=== PATIENT | female | born 1930 | race Caucasian/White ===

== ENCOUNTER 2018-02-05 13:25 | Emergency (ER) | payer MEDICARE ==
[2018-02-05 14:24] VITALS: BP 121/67
--- NOTE | 2018-02-05 15:29 | UC ---
Hip/Pelvis Pain - HPI Summary HPI Summary: Fell yesterday outside onto her left side. Having right hip/ groin pain today. Worse with standing. - History Of Current Complaint Chief Complaint: UCLowerExtremity Stated Complaint: S/P FALL RIGHT LEG Time Seen by Provider: 02/05/18 15:19 Hx Obtained From: Patient Hx Last Menstrual Period: n/a Onset/Duration: Sudden Onset, Lasting Days - 1, Still Present Timing: Constant Severity Initially: Moderate Severity Currently: Mild Pain Intensity: 0 Location: Discrete At: - right hip and groin Character Of Pain: Dull Aggravating Factor(s): Weight Bearing Alleviating Factor(s): Rest Associated Signs And Symptoms: Positive: Negative - Allergies/Home Medications Allergies/Adverse Reactions: Allergies Allergy/AdvReac Type Severity Reaction Status Date / Time neomycin Allergy Unknown Verified 02/05/18 14:17 Reaction Details PMH/Surg Hx/FS Hx/Imm Hx Cardiovascular History: Hypertension - Surgical History Surgical History: Yes Surgery Procedure, Year, and Place: bilat knee replacement. bilat shoulder surg. appendectomy. tonsillectomy - Family History Known Family History: Positive: Cardiac Disease, Hypertension, Diabetes - Social History Occupation: Retired Lives: Alone Alcohol Use: None Substance Use Type: None Smoking Status (MU): Never Smoked Tobacco - Immunization History Most Recent Influenza Vaccination: 03/2013 Review of Systems Musculoskeletal: Arthralgia - right hip Is Patient Immunocompromised?: No All Other Systems Reviewed And Are Negative: Yes Physical Exam Triage Information Reviewed: Yes Appearance: Well-Appearing, Well-Nourished, Pain Distress - mild Vital Signs: Initial Vital Signs Temp 98.1 F 02/05/18 14:19 Pulse 90 02/05/18 14:19 Resp 20 02/05/18 14:19 BP 121/67 02/05/18 14:19 Pulse Ox 99 02/05/18 14:19 Vital Signs Reviewed: Yes Eyes: Positive: Conjunctiva Clear Neck exam: Normal Respiratory: Positive: Lungs clear Cardiovascular: Positive: RRR, Murmur:Sys:Grade _?_/ - 3/6 Musculoskeletal: Positive: Strength Limited @ - right hip with pain., ROM Limited @ - right hip. In wheelchair., Other: - Tender over the greater trochanter. Neurological Exam: Normal Psychological Exam: Normal Skin Exam: Normal Diagnostics - Radiology No standard instances Xray Interpretation: No Acute Changes Radiology Interpretation Completed By: Radiologist Hip Injury Course/Dx - Differential Dx/Diagnosis Differential Diagnosis/HQI/PQRI: Dislocation, Fracture, Sprain, Strain Provider Diagnoses: Right hip strain. Discharge - Sign-Out/Discharge Documenting (check all that apply): Patient Departure All imaging exams completed and their final reports reviewed: Yes - Discharge Plan Condition: Stable Disposition: HOME Patient Education Materials: Muscle Strain (ED), Hip Sprain (ED) Referrals: Ina Wong MD [Primary Care Provider] - 2 Days (If not improving.) - Billing Disposition and Condition Condition: STABLE Disposition: Home
--- NOTE | 2018-02-05 15:44 | RAD ---
HISTORY: fell yesterday on the left side. Right hip pain COMPARISONS: None VIEWS: 3 , Frontal view of the pelvis with frontal and frog-leg views of the right hip FINDINGS: BONE DENSITY: There is diffuse osteopenia. BONES: There is no displaced fracture. JOINTS: There is mild osteoarthritis of the hips and SI joints bilaterally. ALIGNMENT: There is no dislocation. SOFT TISSUES: Unremarkable. OTHER FINDINGS: Degenerative changes are noted of the spine. IMPRESSION: 1. OSTEOPENIA. 2. OSTEOARTHRITIS. 3. NO RADIOGRAPHIC EVIDENCE FOR HIP FRACTURE. X-RAYS MAY BE NEGATIVE WITH NONDISPLACED HIP FRACTURE, IF THERE IS PERSISTENT CLINICAL CONCERN, RECOMMEND CONSIDERATION OF MRI. IN THE SETTING OF CONTRAINDICATION TO MRI OR LIMITATION IN EMERGENT ACCESS TO MRI, CT WOULD BE SUGGESTED.
== END 2018-02-05 16:12 | disposition home or self-care (01) ==
LOC: UCCORT 13:25
DX: S73.101A Unspecified sprain of right hip, initial encounter (principal); W19.XXXA Unspecified fall, initial encounter; Y93.9 Activity, unspecified; Y92.9 Unspecified place or not applicable; Z88.1 Allergy status to other antibiotic agents
CPT/HCPCS: 99211; G0463

== ENCOUNTER 2018-02-27 13:46 | Emergency (ER) | payer MEDICARE ==
[2018-02-27] MEDS ORDERED: NS 0.9% 500 ML* 500 ML IV ONE (14:38)
[2018-02-27 14:51] LABS: ABS Basophils 0 10^3/ul (0-0.2); ABS Eosinophils 0.1 10^3/ul (0-0.6); ABS Lymphocytes 1.1 10^3/ul (1.0-4.8); ABS Monocytes 0.6 10^3/ul (0-0.8); ABS Neutrophils 4.1 10^3/ul (1.5-7.7); ABS Nucleated RBC 0 10^3/ul; Eosinophil % 2.1 % (0-6); Hematocrit 33 % (35-47); Hemoglobin 11.5 g/dl (12.0-16.0); Lymphocyte % 18.9 % (25-47); Mean Corpuscular HGB Conc 35 g/dl (31-36); Mean Corpuscular Hemoglobin 34 pg (27-31); Mean Corpuscular Volume 98 fL (80-97); Mean Platelet Volume 5.8 um3 (7.4-10.4); Nucleated Red Blood Cells % 0.1; Platelet Count 352 10^3/ul (150-450); Red Blood Count 3.35 10^6/ul (4.00-5.40); Red Cell Distribution Width 13 % (10.5-15)
[2018-02-27 15:08] LABS: EGFR Non-African American 104.1 (>60)
[2018-02-27 16:55] LABS: Urine Appearance Cloudy; Urine Blood Negative (Negative); Urine Color Yellow; Urine Ketones Negative (Negative); Urine Protein Negative (Negative); Urine Red Blood Cell Absent (Absent); Urine Specific Gravity 1.005 (1.010-1.030); Urine Urobilinogen Negative (Negative); Urine White Blood Cell 3+(>20/hpf) (Absent)
[2018-02-27] MEDS ORDERED: cefTRIAXone(*) 1 GM in NS 0.9% 50 ML* 50 ML IVPB ONE (17:13)
--- NOTE | 2018-02-27 17:27 | ED ---
GI/ HPI - HPI Summary HPI Summary: Patient is a 87 y/o F w/ c/o constipation for the past week. She denies vomiting , reports occasional nausea. Patient reports recent decreased appetite. Fever denied, some chills reported. PMHx of MS is noted, Hx of [place], stroke is denied. She reports slight JENKINS, denies blurred/double vision, chest pain, SOB, bruises, edema, depression, anxiety, sore throat, ear pain, neck pain and putting anything up her rectum. On triage, associated severity is rated 2/10, nothing is noted to aggravate/alleviate Sx. Home medications and allergies are reviewed. Patient lives alone. - History of Current Complaint Chief Complaint: EDAbdPain Stated Complaint: INABILITY TO URINATE Hx Obtained From: Patient Hx Last Menstrual Period: n/a Onset/Duration: Started Weeks Ago - onset a week ago, Still Present Timing: Constant, Lasting Weeks - one week Current Severity: Mild - 2/10 Pain Intensity: 2 Associated Signs and Symptoms: Positive: Nausea, Constipation, Change in Appetite - decreased, Chills, Other: - POSITIVE: slight JENKINS NEGATIVE: blurred/ double vision, SOB, bruises, edema, depression, anxiety, sore throat, ear pain, neck pain, putting anything up her rectum. Negative: Vomiting, Fever, Chest Pain Aggravating Factor(s): Nothing Alleviating Factor(s): Nothing - Allergy/Home Medications Allergies/Adverse Reactions: Allergies Allergy/AdvReac Type Severity Reaction Status Date / Time neomycin Allergy Unknown Verified 02/27/18 14:40 Reaction Details Home Medications: Home Medications C,E,Zinc,Copper 11/Uauxn8v/Lut [Ocuvite Adult 50 Plus Softgel] 1 cap PO BID [History Confirmed 02/27/18] Calcium Carb/Vit D3/Minerals [Calcium 600+D Plus [place]] 1 tab PO DAILY [History Confirmed 02/27/18] Hydrochlorothiazide TAB* [Hydrodiuril TAB*] 25 mg PO DAILY 02/27/18 [History Confirmed 02/27/18] Hydroxychloroquine TAB* [Plaquenil TAB*] 200 mg PO DAILY 02/27/18 [History Confirmed 02/27/18] Ibuprofen TAB* [Advil TAB*] 200 mg PO Q6H PRN 02/27/18 [History Confirmed ] Multivitamins/Minerals TAB* [Theragran/minerals TAB*] 1 tab PO DAILY 02/27/18 [ History Confirmed 02/27/18] Oxybutynin TAB* [Ditropan TAB*] 5 mg PO BID 02/27/18 [History Confirmed 02/27/18 ] PMH/Surg Hx/FS Hx/Imm Hx Cardiovascular History: Reports: Hx Hypertension Denies: Hx Myocardial Infarction Neurological History: Reports: Other Neuro Impairments/Disorders - Hx of MS Denies: Hx CVA - Surgical History Surgery Procedure, Year, and Place: bilat knee replacement. bilat shoulder surg. appendectomy. tonsillectomy - Immunization History Immunizations Up to Date: Yes Infectious Disease History: No Infectious Disease History: Denies: Traveled Outside the [place] in Last 30 Days - Family History Known Family History: Positive: Cardiac Disease, Hypertension, Diabetes - Social History Alcohol Use: None Substance Use Type: Reports: None Smoking Status (MU): Never Smoked Tobacco Review of Systems Positive: Chills. Negative: Fever Negative: Blurred Vision - negative - double vision Negative: Sore Throat, Ear Ache Negative: Chest Pain Negative: Shortness Of Breath Positive: Nausea Positive: other - constipation, denies putting anything up her rectum Positive: Other - NEGATIVE: neck pain . Negative: Edema Negative: Bruising Positive: Headache Negative: Anxious, Depressed All Other Systems Reviewed And Are Negative: No Physical Exam - Summary Physical Exam Summary: Appearance: Alert, conversive, nontoxic appearing Skin: Warm, dry, no mottling, no rashes, no contusions HEENT: EOMI, PERRL, slightly dry mucous membranes Neck: No masses on the neck, supple Respiratory: Clear to auscultation, breath sounds present, no rales, no rhonchi , no wheezes Cardiovascular: RRR, pulses are symmetrical in both lower and upper extremities Abdomen: Soft, non-tender Bowel Sounds: Present Rectal exam: tiny tear at 4 o'clock position in rectum, no stool noted in rectal vault Musculoskeletal: No CVA tenderness, no obvious deformity, moving all extremities in a grossly normal manner Neurological: A&Ox3, CN II-XII Intact, moving all extremities symmetrically Psychiatric: Normal affect and mood Triage Information Reviewed: Yes Vital Signs On Initial Exam: Initial Vitals Temp Pulse Resp BP Pulse Ox 98.5 F 95 16 122/47 97 02/27/18 13:54 02/27/18 13:54 02/27/18 13:54 02/27/18 13:54 02/27/18 13:54 Vital Signs Reviewed: Yes Diagnostics - Vital Signs Vital Signs Temp Pulse Resp BP Pulse Ox 02/27/18 16:32 89 165/101 94 02/27/18 16:02 76 148/91 90 02/27/18 16:00 84 91 02/27/18 15:32 78 156/87 95 02/27/18 15:02 82 147/81 80 02/27/18 15:00 75 93 02/27/18 14:33 79 148/75 97 02/27/18 14:32 82 94 02/27/18 13:54 98.5 F 95 16 122/47 97 - Laboratory Lab Results: Lab Results 02/27/18 02/27/18 02/27/18 Range/Units 14:40 14:40 14:40 WBC 6.0 (3.5-10.8) 10^3/ul RBC 3.35 L (4.00-5.40) 10^6/ul Hgb 11.5 L (12.0-16.0) g/dl Hct 33 L (35-47) % MCV 98 H (80-97) fL MCH 34 H (27-31) pg MCHC 35 (31-36) g/dl RDW 13 (10.5-15) % Plt Count 352 (150-450) 10^3/ul MPV 5.8 L (7.4-10.4) um3 Neut % (Auto) 69.2 (38-83) % Lymph % (Auto) 18.9 L (25-47) % Waldo % (Auto) 9.4 H (0-7) % Eos % (Auto) 2.1 (0-6) % Baso % (Auto) 0.4 (0-2) % Absolute Neuts (auto) 4.1 (1.5-7.7) 10^3/ul Absolute Lymphs (auto) 1.1 (1.0-4.8) 10^3/ul Absolute Monos (auto) 0.6 (0-0.8) 10^3/ul Absolute Eos (auto) 0.1 (0-0.6) 10^3/ul Absolute Basos (auto) 0 (0-0.2) 10^3/ul Absolute Nucleated RBC 0 10^3/ul Nucleated RBC % 0.1 Sodium 132 L (135-145) mmol/L Potassium 3.6 (3.5-5.0) mmol/L Chloride 96 L (101-111) mmol/L Carbon Dioxide 30 (22-32) mmol/L Anion Gap 6 (2-11) mmol/L BUN 15 (6-24) mg/dL Creatinine 0.55 (0.51-0.95) mg/dL Est GFR ( Amer) 125.9 (>60) Est GFR (Non-Af Amer) 104.1 (>60) BUN/Creatinine Ratio 27.3 H (8-20) Glucose 88 (70-100) mg/dL Lactic Acid 0.7 (0.5-2.0) mmol/L Calcium 9.1 (8.6-10.3) mg/dL Magnesium 1.9 (1.9-2.7) mg/dL Total Bilirubin 0.40 (0.2-1.0) mg/dL AST 29 (13-39) U/L ALT 26 (7-52) U/L Alkaline Phosphatase 145 H (34-104) U/L Total Protein 6.4 (6.4-8.9) g/dL Albumin 3.8 (3.2-5.2) g/dL Globulin 2.6 (2-4) g/dL Albumin/Globulin Ratio 1.5 (1-3) Lipase 15 (11.0-82.0) U/L Urine Color Urine Appearance Urine pH (5-9) Ur Specific [place] (1.010-1.030) Urine Protein (Negative) Urine Ketones (Negative) Urine Blood (Negative) Urine Nitrate (Negative) Urine Bilirubin (Negative) Urine Urobilinogen (Negative) Ur Leukocyte Esterase (Negative) Urine WBC (Auto) (Absent) Urine RBC (Auto) (Absent) Urine Bacteria (Absent) Urine Glucose (Negative) Urine Ascorbic Acid (Negative) 02/27/18 Range/Units 16:33 WBC (3.5-10.8) 10^3/ul RBC (4.00-5.40) 10^6/ul Hgb (12.0-16.0) g/dl Hct (35-47) % MCV (80-97) fL MCH (27-31) pg MCHC (31-36) g/dl RDW (10.5-15) % Plt Count (150-450) 10^3/ul MPV (7.4-10.4) um3 Neut % (Auto) (38-83) % Lymph % (Auto) (25-47) % [place] % (Auto) (0-7) % Eos % (Auto) (0-6) % Baso % (Auto) (0-2) % Absolute Neuts (auto) (1.5-7.7) 10^3/ul Absolute Lymphs (auto) (1.0-4.8) 10^3/ul Absolute Monos (auto) (0-0.8) 10^3/ul Absolute Eos (auto) (0-0.6) 10^3/ul Absolute Basos (auto) (0-0.2) 10^3/ul Absolute Nucleated RBC 10^3/ul Nucleated RBC % Sodium (135-145) mmol/L Potassium (3.5-5.0) mmol/L Chloride (101-111) mmol/L Carbon Dioxide (22-32) mmol/L Anion Gap (2-11) mmol/L BUN (6-24) mg/dL Creatinine (0.51-0.95) mg/dL Est GFR ( Amer) (>60) Est GFR (Non-Af Amer) (>60) BUN/Creatinine Ratio (8-20) Glucose (70-100) mg/dL Lactic Acid (0.5-2.0) mmol/L Calcium (8.6-10.3) mg/dL Magnesium (1.9-2.7) mg/dL Total Bilirubin (0.2-1.0) mg/dL AST (13-39) U/L ALT (7-52) U/L Alkaline Phosphatase (34-104) U/L Total Protein (6.4-8.9) g/dL Albumin (3.2-5.2) g/dL Globulin (2-4) g/dL Albumin/Globulin Ratio (1-3) Lipase (11.0-82.0) U/L Urine Color Yellow Urine Appearance Cloudy Urine pH 7.0 (5-9) Ur Specific [place] 1.005 L (1.010-1.030) Urine Protein Negative (Negative) Urine Ketones Negative (Negative) Urine Blood Negative (Negative) Urine Nitrate Positive A (Negative) Urine Bilirubin Negative (Negative) Urine Urobilinogen Negative (Negative) Ur Leukocyte Esterase 3+ A (Negative) Urine WBC (Auto) 3+(>20/hpf) A (Absent) Urine RBC (Auto) Absent (Absent) Urine Bacteria 1+ A (Absent) Urine Glucose Negative (Negative) Urine Ascorbic Acid * A (Negative) Result Diagrams: 02/27/18 14:40 02/27/18 14:40 Lab Statement: Any lab studies that have been ordered have been reviewed, and results considered in the medical decision making process. - Radiology abdomen x-ray Xray Interpretation: Positive (See Comments) Radiology Interpretation Completed By: Radiologist - Nonspecific bowel gas pattern. Large amount of stool throughout the colon. This report was reviewed by ed physician. Re-Evaluation - Re-Evaluation First Eval Re-Evaluation Time: 18:15 Comment: Discussed results of abdomen x-ray and UA as well as plan of treatment as an outpatient. Patient is agreeable with plan. GIGU Course/Dx - Course Course Of Treatment: Patient is a 87 y/o F w/ c/o constipation for the past week. She denies vomiting, reports occasional nausea. Patient reports recent decreased appetite. Fever denied, some chills reported. PMHx of MS is noted, Hx of [place], stroke is denied. She reports slight JENKINS, denies blurred/double vision, chest pain, SOB, bruises, edema, depression, anxiety, sore throat, ear pain, neck pain and putting anything up her rectum. On physical exam, patient is noted to have slightly dry mucous membranes, rectal exam revealed tiny tear at the 4 o'clock position of the rectum, no stool noted in rectal vault. During ED course, patient received fluids, IV ceftriaxone. Labs showed WBC 6.0, glucose 88 , lactic acid 0.7, sodium 132, chloride 96, RBC 3.35, alk phos 145, lipase 15. UA showed positive nitrate, 3+ leukocyte esterase, 3+ WBC, bacteria present, ascorbic acid present. Abdomen X-ray shows nonspecific bowel gas pattern. Large amount of stool throughout the colon. Discussed results of abdomen x-ray and UA as well as plan of treatment as an outpatient. Patient is agreeable with plan. Dx of UTI and constipation. - Diagnoses Provider Diagnoses: Constipation, UTI (urinary tract infection) Discharge - Sign-Out/Discharge Documenting (check all that apply): Patient Departure - discharge - Discharge Plan Condition: Stable Disposition: HOME Prescriptions: Cephalexin CAP* [Keflex CAP*] 500 mg PO TID #21 cap MDD 3 Patient Education Materials: Constipation (ED), Urinary Tract Infection in Women (DC) Referrals: Ina Wong MD [Primary Care Provider] - Additional Instructions: Take the keflex as instructed. return if worse or any new symptoms. Drink plenty of fluids. eat plenty of fruits and vegetables. follow up with your doctor this week. take the magnesium citrate clear liquid when you get home. it may cause loose stools. stay at home for several hours after you take it so you can be near a bathroom. - Billing Disposition and Condition Condition: STABLE Disposition: Home - Attestation Statements Document Initiated by [place]: Yes Documenting Scribe: Salomón Pierre Provider For Whom Kayce is Documenting (Include Credential): Priyanka Mulligan MD Scribe Attestation: Salomón Anand , scribed for Priyanka Mulligan MD on 02/27/18 at 1855. Scribe Documentation Reviewed: Yes Provider Attestation: The documentation as recorded by the Salomón mccrary accurately reflects the service I personally performed and the decisions made by me, Priyanka Mulligan MD
--- NOTE | 2018-02-27 17:28 | RAD ---
HISTORY: constipation, decreased po intake COMPARISONS: None VIEWS: Frontal views of the abdomen. FINDINGS: BOWEL: There is a nonspecific bowel gas pattern, with nondilated small bowel gas noted. There is a large amount of stool within the colon. CALCULI: Calcified uterine fibroids are noted. BONES AND SOFT TISSUES: There is a scoliotic curvature of the spine. Degenerative changes noted of the spine and hips. OTHER FINDINGS: The lung bases are clear. There is no subphrenic gas. IMPRESSION: NONSPECIFIC BOWEL GAS PATTERN. LARGE AMOUNT OF STOOL THROUGHOUT THE COLON.
[2018-02-27] MEDS ORDERED: Magnesium CITRATE* 300 ML BTL PO ONE (18:26)
[2018-02-27 18:52] VITALS: BP 153/74
--- NOTE | 2018-03-01 15:47 | ED ---
Progress - Progress Note Progress Note: Patient's preliminary urine culture reveals greater than 100,000 Escherichia coli. Patient was started on Keflex. Final results pending. Re-Evaluation - Re-Evaluation First Eval Re-Evaluation Time: 18:15 Comment: Discussed results of abdomen x-ray and UA as well as plan of treatment as an outpatient. Patient is agreeable with plan. Course/Dx - Course Course Of Treatment: Patient is a 87 y/o F w/ c/o constipation for the past week. She denies vomiting, reports occasional nausea. Patient reports recent decreased appetite. Fever denied, some chills reported. PMHx of MS is noted, Hx of [place], stroke is denied. She reports slight JENKINS, denies blurred/double vision, chest pain, SOB, bruises, edema, depression, anxiety, sore throat, ear pain, neck pain and putting anything up her rectum. On physical exam, patient is noted to have slightly dry mucous membranes, rectal exam revealed tiny tear at the 4 o'clock position of the rectum, no stool noted in rectal vault. During ED course, patient received fluids, IV ceftriaxone. Labs showed WBC 6.0, glucose 88 , lactic acid 0.7, sodium 132, chloride 96, RBC 3.35, alk phos 145, lipase 15. UA showed positive nitrate, 3+ leukocyte esterase, 3+ WBC, bacteria present, ascorbic acid present. Abdomen X-ray shows nonspecific bowel gas pattern. Large amount of stool throughout the colon. Discussed results of abdomen x-ray and UA as well as plan of treatment as an outpatient. Patient is agreeable with plan. Dx of UTI and constipation. - Diagnoses Provider Diagnoses: Constipation, UTI (urinary tract infection) Discharge - Sign-Out/Discharge Documenting (check all that apply): Post-Discharge Follow Up - Discharge Plan Condition: Stable Disposition: HOME Prescriptions: Cephalexin CAP* [Keflex CAP*] 500 mg PO TID #21 cap MDD 3 Patient Education Materials: Constipation (ED), Urinary Tract Infection in Women (DC) Referrals: Ina Wong MD [Primary Care Provider] - Additional Instructions: Take the keflex as instructed. return if worse or any new symptoms. Drink plenty of fluids. eat plenty of fruits and vegetables. follow up with your doctor this week. take the magnesium citrate clear liquid when you get home. it may cause loose stools. stay at home for several hours after you take it so you can be near a bathroom. - Billing Disposition and Condition Condition: STABLE Disposition: Home
--- NOTE | 2018-03-02 06:16 | PN ---
Progress Note - Progress Note Date of Service: 02/27/18 Note: Pt. seen in ED 02/27 and started on Keflex for UTI. Final urine culture today is susceptible to keflex, no change in treatment needed at this time.
== END 2018-02-27 18:50 | disposition home or self-care (01) ==
LOC: ED 13:46
DX: N39.0 Urinary tract infection, site not specified (principal); K59.00 Constipation, unspecified; I25.2 Old myocardial infarction; R51 Headache
CPT/HCPCS: 36415; 74018; 80053; 81003; 81015; 83605; 83690; 83735; 85025; 87077; 87086; 87186; 96365; 99283; A9270-GY; J0696

== ENCOUNTER 2018-03-05 15:11 | Emergency (ER) | payer MEDICARE ==
[2018-03-05 16:25] LABS: ABS Basophils 0.1 10^3/ul (0-0.2); ABS Eosinophils 0.1 10^3/ul (0-0.6); ABS Lymphocytes 0.9 10^3/ul (1.0-4.8); ABS Monocytes 0.7 10^3/ul (0-0.8); ABS Neutrophils 5.5 10^3/ul (1.5-7.7); ABS Nucleated RBC 0 10^3/ul; Eosinophil % 0.8 % (0-6); Hematocrit 32 % (35-47); Hemoglobin 11.3 g/dl (12.0-16.0); Lymphocyte % 12.6 % (25-47); Mean Corpuscular HGB Conc 35 g/dl (31-36); Mean Corpuscular Hemoglobin 34 pg (27-31); Mean Corpuscular Volume 97 fL (80-97); Mean Platelet Volume 6.1 um3 (7.4-10.4); Nucleated Red Blood Cells % 0; Platelet Count 382 10^3/ul (150-450); Red Blood Count 3.33 10^6/ul (4.00-5.40); Red Cell Distribution Width 13 % (10.5-15); White Blood Count 7.2 10^3/ul (3.5-10.8)
[2018-03-05 16:44] LABS: EGFR Non-African American 92.4 (>60)
--- NOTE | 2018-03-05 17:31 | RAD ---
INDICATION: Right-sided rib pain. COMPARISON: Comparison is made with a prior chest x-ray study from January 17, 2015. TECHNIQUE: 4 views of the right ribs and and an AP supine film of the chest were obtained. FINDINGS: The bones appear osteopenic. No fracture is seen. The heart appears mildly enlarged and unchanged. The lungs are hyperinflated and clear. No pleural effusion is seen. IMPRESSION: NO EVIDENCE FOR FRACTURE.
--- NOTE | 2018-03-05 17:32 | ED ---
Back Pain - HPI Summary HPI Summary: Patient complains of right upper side pain 2 weeks. Pain is sharp, worse with movement, better with rest in position. Patient states she had a fall a couple days prior to onset of pain, was evaluated for fall at [place]. [place] [facility] [place], is currently having bowel movements. Denies fever, cough, sore throat, CP, SOB, N/V/D, change in urine. Abdominal surgical history is appendectomy. - History of Current Complaint Chief Complaint: EDAbdPain Stated Complaint: BACK/ABD PAIN Time Seen by Provider: 03/05/18 16:08 Hx Obtained From: Patient, Family/[employer] Hx Last Menstrual Period: n/a Onset/Duration: Gradual Onset, Lasting Weeks Onset/Duration: Started Weeks Ago Timing: Intermittent Back Pain Location: Is Discrete @ Severity Initially: Moderate Severity Currently: Moderate Pain Intensity: 5 Pain Scale Used: 0-10 Numeric Character: Sharp Aggravating Symptom(s): Movement Alleviating Symptom(s): Rest, Position Associated Signs And Symptoms: Positive: Negative - Allergies/Home Medications Allergies/Adverse Reactions: Allergies Allergy/AdvReac Type Severity Reaction Status Date / Time neomycin Allergy Unknown Verified 02/27/18 14:40 Reaction Details PMH/Surg Hx/FS Hx/Imm Hx Endocrine/Hematology History: Denies: Hx Anticoagulant Therapy Cardiovascular History: Reports: Hx Hypertension Denies: Hx Myocardial Infarction History: Denies: Hx Dialysis Neurological History: Reports: Other Neuro Impairments/Disorders - Hx of MS Denies: Hx CVA - Surgical History Surgery Procedure, Year, and Place: bilat knee replacement. bilat shoulder surg. appendectomy. tonsillectomy Infectious Disease History: No Infectious Disease History: Denies: Traveled Outside the [place] in Last 30 Days - Family History Known Family History: Positive: Cardiac Disease, Hypertension, Diabetes - Social History Alcohol Use: None Substance Use Type: Reports: None Smoking Status (MU): Never Smoked Tobacco Review of Systems Constitutional: Negative Eyes: Negative ENT: Negative Cardiovascular: Negative Respiratory: Negative Gastrointestinal: Negative Genitourinary: Negative Musculoskeletal: Other Skin: Negative Neurological: Negative Psychological: Normal All Other Systems Reviewed And Are Negative: Yes Physical Exam - Summary Physical Exam Summary: Right side tender to touch. No ecchymosis, erythema, swelling, deformity noted to right side. Lung sounds clear to auscultation bilaterally. Abdominal exam unremarkable. Triage Information Reviewed: Yes Vital Signs On Initial Exam: Initial Vitals Temp Pulse Resp BP Pulse Ox 98.1 F 84 14 118/95 95 03/05/18 15:16 03/05/18 15:16 03/05/18 15:16 03/05/18 15:16 03/05/18 15:16 Vital Signs Reviewed: Yes Appearance: Positive: Well-Appearing Skin: Positive: Warm Head/Face: Positive: Normal Head/Face Inspection Eyes: Positive: Normal Neck: Positive: Supple Respiratory/Lung Sounds: Positive: Clear to Auscultation Cardiovascular: Positive: Normal Abdomen Description: Positive: Nontender Musculoskeletal: Positive: Normal Neurological: Positive: Normal Psychiatric: Positive: Normal AVPU Assessment: Alert - Jorge Coma Scale Best Eye Response: 4 - Spontaneous Best Motor Response: 6 - Obeys Commands Best Verbal Response: 5 - Oriented Coma Scale Total: 15 Diagnostics - Vital Signs Vital Signs Temp Pulse Resp BP Pulse Ox 03/05/18 16:35 82 151/85 100 03/05/18 16:05 79 143/64 99 03/05/18 16:04 78 96 03/05/18 15:16 98.1 F 84 14 118/95 95 - Laboratory Lab Results: Lab Results 03/05/18 03/05/18 Range/Units 16:15 16:15 WBC 7.2 (3.5-10.8) 10^3/ul RBC 3.33 L (4.00-5.40) 10^6/ul Hgb 11.3 L (12.0-16.0) g/dl Hct 32 L (35-47) % MCV 97 (80-97) fL MCH 34 H (27-31) pg MCHC 35 (31-36) g/dl RDW 13 (10.5-15) % Plt Count 382 (150-450) 10^3/ul MPV 6.1 L (7.4-10.4) um3 Neut % (Auto) 75.8 (38-83) % Lymph % (Auto) 12.6 L (25-47) % Addison % (Auto) 10.0 H (0-7) % Eos % (Auto) 0.8 (0-6) % Baso % (Auto) 0.8 (0-2) % Absolute Neuts (auto) 5.5 (1.5-7.7) 10^3/ul Absolute Lymphs (auto) 0.9 L (1.0-4.8) 10^3/ul Absolute Monos (auto) 0.7 (0-0.8) 10^3/ul Absolute Eos (auto) 0.1 (0-0.6) 10^3/ul Absolute Basos (auto) 0.1 (0-0.2) 10^3/ul Absolute Nucleated RBC 0 10^3/ul Nucleated RBC % 0 Sodium 124 L (135-145) mmol/L Potassium 3.8 (3.5-5.0) mmol/L Chloride 92 L (101-111) mmol/L Carbon Dioxide 26 (22-32) mmol/L Anion Gap 6 (2-11) mmol/L BUN 15 (6-24) mg/dL Creatinine 0.61 (0.51-0.95) mg/dL Est GFR ( Amer) 111.7 (>60) Est GFR (Non-Af Amer) 92.4 (>60) BUN/Creatinine Ratio 24.6 H (8-20) Glucose 117 H (70-100) mg/dL Calcium 9.2 (8.6-10.3) mg/dL Total Bilirubin 0.30 (0.2-1.0) mg/dL AST 31 (13-39) U/L ALT 27 (7-52) U/L Alkaline Phosphatase 148 H (34-104) U/L C-Reactive Protein 33.60 H (<8.01) mg/L Total Protein 6.3 L (6.4-8.9) g/dL Albumin 3.8 (3.2-5.2) g/dL Globulin 2.5 (2-4) g/dL Albumin/Globulin Ratio 1.5 (1-3) Lipase 15 (11.0-82.0) U/L Result Diagrams: 03/05/18 16:15 03/05/18 16:15 Lab Statement: Any lab studies that have been ordered have been reviewed, and results considered in the medical decision making process. Back Pain Course/Dx - Course Course Of Treatment: Patient complains of right upper side pain 2 weeks. Pain is sharp, worse with movement, better with rest in position. Patient states she had a fall a couple days prior to onset of pain, was evaluated for fall at [place]. [place] was [place] [facility] [place], is currently having bowel movements. Denies fever, cough, sore throat, CP, SOB, N/V/D, change in urine. Abdominal surgical history is appendectomy. Physical exam: Right side tender to touch. No ecchymosis, erythema, swelling, deformity noted to right side. Lung sounds clear to auscultation bilaterally. Abdominal exam unremarkable. Vital signs unremarkable. Labs unremarkable. Rib and chest x-ray negative. EKG unremarkable. Abdominal exam unremarkable. Patient pain reproducible with palpation and movement. Likely musculoskeletal pain. - Diagnoses Provider Diagnoses: Musculoskeletal pain, Hyponatremia Discharge - Sign-Out/Discharge Documenting (check all that apply): Patient Departure - Discharge Plan Condition: Stable Disposition: HOME Patient Education Materials: Musculoskeletal Pain (ED) Referrals: Ana Rosa Chance MD [Primary Care Provider] - Additional Instructions: Take ibuprofen for right side pain. Follow-up with primary care for right side pain and hyponatremia. Return to the ED for any new or worsening symptoms. - Billing Disposition and Condition Condition: STABLE Disposition: Home
[2018-03-05] MEDS ORDERED: NS 0.9% 500 ML* 500 ML IV ONE (19:29)
[2018-03-05 21:04] VITALS: BP 123/74
== END 2018-03-05 21:10 | disposition home or self-care (01) ==
LOC: ED 15:11
DX: R10.11 Right upper quadrant pain (principal); R07.81 Pleurodynia; E87.1 Hypo-osmolality and hyponatremia; Z96.653 Presence of artificial knee joint, bilateral; Z90.89 Acquired absence of other organs; Z88.1 Allergy status to other antibiotic agents
CPT/HCPCS: 36415; 80053; 83690; 85025; 86140; 93005; 96360; 99284